=== PATIENT | female | born 1980 | race Caucasian/White ===

== ENCOUNTER → 2025-10-01 07:25 | Outpatient (REF) | payer OTHER, SELFPAY ==
[2025-10-01 09:44] LABS: Hematocrit 39.0 % (37.0-47.0); Hemoglobin 12.9 g/dL (12.0-16.0); Mean Corp Hgb Conc. 33.1 g/dL (33.0-37.0); Mean Corpuscular Volume 93.3 fL (81.0-99.0); Nucleated Red Blood Cells % 0 %; Platelet Count 118 10^3/uL (130-400); Red Cell Dist. Width 12.2 % (11.5-14.5)
[2025-10-01 10:10] LABS: ALT (SGPT) 50 U/L (0-35); AST (SGOT) 34 U/L (14-36); Albumin 3.8 g/dl (3.5-5.0); Alkaline Phosphatase 34 U/L (38-126); Blood Urea Nitrogen 17 mg/dl (7-17); Calcium 8.9 mg/dl (8.4-10.2); Carbon Dioxide 29 mmol/L (22-30); Chloride 100 mmol/L (98-107); Glucose 79 mg/dl (70-99); Potassium 3.4 mmol/L (3.5-5.1); Sodium 133 mmol/L (135-145); Total Protein 6.3 g/dl (6.3-8.2); eGFR > 60.00
== END ==
LOC: RAD 07:25
PROVIDERS: ATTENDING PHYSICIAN Internal Medicine Hematology & Oncology; FAMILY PHYSICIAN Internal Medicine
DX: C50.411 Malignant neoplasm of upper-outer quadrant of right female breast (principal)
CPT/HCPCS: 36415; 70491; 71260; 80053; 85025; Q9967